=== PATIENT | female | born 1965 | race Two or more races ===

== ENCOUNTER 2016-07-29 12:17 | Emergency (ER) | payer BC, OTHER ==
[2016-07-29 12:23] VITALS: BP 153/95; PULSE 79; TEMP 97.4; BMI 28.9
--- NOTE | 2016-07-29 12:56 | PDOC ---
History of Present Illness - General Chief Complaint: Redness To Affected Area Stated Complaint: INFECTED LT LEG Time Seen by Provider: 07/29/16 12:53 History Source: Patient Exam Limitations: No Limitations - History of Present Illness Initial Comments: CHIEF COMPLAINT: 51 y/o afebrile female with no significant pMH c/o left leg infection. HISTORY OF PRESENT ILLNESS: The patient states she noticed a small pimple on her left calf 1 week ago. The area has become bigger, has gotten red and painful. She denies bug bite. She denies fever, streaking. Vital signs on arrival are within normal limits. REVIEW OF SYSTEMS: GENERAL/CONSTITUTIONAL: No fever/chills. No weakness. No weight change. HEAD, EYES, EARS, NOSE AND THROAT: No change in vision. No ear pain or discharge. No sore throat. GENITOURINARY: No dysuria, frequency, or change in urination. MUSCULOSKELETAL: No joint or muscle swelling or pain. No neck or back pain. SKIN: Painful red are to left calf. NEUROLOGIC: No headache, vertigo, loss of consciousness, or loss of sensation. PHYSICAL EXAM: VITAL_SIGNS: within normal limits GENERAL_APPEARANCE: alert, cooperative, no obvious discomfort. Pt is ambulatory. MENTAL_STATUS: speech clear, oriented X 3, responds appropriately to questions. NEURO: motor intact and sensory intact in injured extremity. EXTREMITIES: good pulse in injured extremity; left calf with 4cm x 3cm, erythematous, warm, indurated abscess with area of fluctuation in center. No streaking. SKIN: warm, dry, good color. Past History - Past Medical History Allergies/Adverse Reactions: Allergies Allergy/AdvReac Type Severity Reaction Status Date / Time No Known Allergies Allergy Verified 07/29/16 12:19 Home Medications: Ambulatory Orders Sulfamethoxazole/Trimethoprim [Bactrim Ds -] 1 tab PO BID #14 tablet 07/29/16 Other medical history: NONE - Psycho/Social/Smoking Cessation Hx Anxiety: No Suicidal Ideation: No Smoking History: Never smoked Have you smoked in the past 12 months: No Information on smoking cessation initiated: No Hx Alcohol Use: No Drug/Substance Use Hx: No Substance Use Type: None *Physical Exam - Vital Signs Last Vital Signs Temp Pulse Resp BP Pulse Ox 97.4 F L 79 18 153/95 100 07/29/16 12:19 07/29/16 12:19 07/29/16 12:19 07/29/16 12:19 07/29/16 12:19 Procedures - Incision and Drainage I&D Site: Left: Leg Betadine cleansed: Yes Blade Size: 18 gauge needle Attempts: 1 Complications: none Medical Decision Making - Medical Decision Making A/P: 51 y/o afebrile female with left calf abscess. 18 gauge needle used to express about 1ml of purulent discharge. Instructed the patient to apply hot compresses at home and sent rx for bactrim. Suggested she f/u with her doctor next week and return to the ER with any worsening or concerning symptoms. The patient verbalizes understanding of all instructions, has no further questions and is awaiting discharge. *DC/Admit/Observation/Transfer Diagnosis at time of Disposition: Abscess of leg, left - Prescriptions Prescriptions: Sulfamethoxazole/Trimethoprim [Bactrim Ds -] 1 tab PO BID #14 tablet - Referrals Referrals: Ishaan Allan MD [Primary Care Provider] - Call tomorrow - Patient Instructions Printed Discharge Instructions: DI for Incision and Drainage of a Skin Abscess Additional Instructions: Discharge Instructions: -Take antibiotics as prescribed -Apply hot compresses to the affected area multiple times per day -Follow up with your doctor within 1 week -Return to the ER with any worsening or concerning symptoms Print Language: GEORGIAN - Post Discharge Activity Work/School Note: Back to Work
== END 2016-07-29 13:23 | disposition home or self-care (01) ==
LOC: JERFT 12:17
PROC: 0H9LXZZ Drainage of Left Lower Leg Skin, External Approach (ICD-10-PCS; principal; 2016-07-29)
DX: L02.416 Cutaneous abscess of left lower limb (principal)
CPT/HCPCS: 99281-25

== ENCOUNTER 2017-08-16 13:26 | Emergency (ER) | payer BC, OTHER ==
[2017-08-16 13:53] VITALS: BP 141/77; TEMP 99.9; BMI 29.2
[2017-08-16] MEDS ORDERED: ACETAMINOPHEN 500 MG TABLET (FP) PO ONE (14:59)
--- NOTE | 2017-08-16 15:04 | PDOC ---
History of Present Illness - General Chief Complaint: Cold Symptoms Stated Complaint: HEADACHES, COUGH Time Seen by Provider: 08/16/17 14:52 History Source: Patient Exam Limitations: No Limitations - History of Present Illness Initial Comments: 08/16/17 14:59 This is a 52-year-old woman with past medical history of kidney stones status post lithotripsy presents to emergency department with 2 days of headache, chills, vomiting- nonbilious nonbloody, sore throat, rhinorrhea, dry cough. Patient reports bitemporal headache radiating across her forehead. She denies any blurry vision, dizziness, chest pain, shortness of breath, abdominal pain, diarrhea, dysuria or urinary symptoms. Past History - Past Medical History Allergies/Adverse Reactions: Allergies Allergy/AdvReac Type Severity Reaction Status Date / Time nut - unspecified AdvReac Intermediate Itching Verified 08/16/17 13:50 FRUIT AdvReac Mild Itching Uncoded 08/16/17 13:50 Home Medications: Ambulatory Orders Oseltamivir Phosphate [Tamiflu -] 75 mg PO BID #10 capsule 08/16/17 Anemia: No Asthma: No Cancer: No Cardiac Disorders: No CVA: No COPD: No CHF: No DVT: No Dementia: No Diabetes: No GI Disorders: No Disorders: No HTN: No Hypercholesterolemia: No Liver Disease: No Seizures: No Thyroid Disease: No - Surgical History Abdominal Surgery: No Appendectomy: No Cardiac Surgery: No Cholecystectomy: No Lung Surgery: No Neurologic Surgery: No Orthopedic Surgery: No - Immunization History Immunization Up to Date: Yes - Suicide/Smoking/Psychosocial Hx Smoking History: Never smoked Have you smoked in the past 12 months: No Information on smoking cessation initiated: No Hx Alcohol Use: No Drug/Substance Use Hx: No Substance Use Type: None Review of Systems - Review of Systems Able to Perform ROS?: Yes Is the patient limited Hungarian proficient: No Constitutional: Yes: See HPI HEENTM: Yes: See HPI Respiratory: Yes: See HPI Cardiac (ROS): No: Symptoms Reported ABD/GI: Yes: See HPI : No: Symptoms Reported Musculoskeletal: No: Symptoms Reported Integumentary: No: Symptoms Reported Neurological: Yes: See HPI *Physical Exam - Vital Signs Last Vital Signs Temp Pulse Resp BP Pulse Ox 99.9 F H 110 H 16 141/77 96 08/16/17 13:50 08/16/17 13:50 08/16/17 13:50 08/16/17 13:50 08/16/17 13:50 - Physical Exam HEENT: positive: Normal Voice, Symmetrical, TMs Normal, Pharyngeal Erythema. negative: Tonsillar Exudate, Tonsillar Erythema Neck: positive: Trachea midline, Supple. negative: Stridor Respiratory/Chest: positive: Lungs Clear, Normal Breath Sounds. negative: Respiratory Distress, Accessory Muscle Use Cardiovascular: positive: Regular Rhythm, S1, S2, Tachycardia. negative: Murmur Gastrointestinal/Abdominal: positive: Normal Bowel Sounds, Soft. negative: Tender Musculoskeletal: positive: Normal Inspection. negative: CVA Tenderness Extremity: positive: Normal Inspection Integumentary: positive: Normal Color, Dry, Warm Neurologic: positive: library supervisor II-XII NML intact, Fully Oriented, Alert, Normal Mood/ Affect, Normal Response, Motor Strength 11/18 Medical Decision Making - Medical Decision Making 08/16/17 15:03 A/P: 52-year-old woman without significant past medical history presenting with 2 days of flulike symptoms. Differential erythema noted. Tachycardic with regular rhythm. S1 and S2 present. No murmur, rub or gallop noted. Skin warm to touch although is afebrile here. Vital signs notable for tachycardia with rate of 108. Influenza testing Tylenol 1 g orally now Reassess 08/16/17 16:06 Influenza testing positive for influenza A. We'll prescribe Tamiflu 75 mg twice a day for 5 days. Patient is feeling better. I will discharge the patient home. I discussed the physical exam findings, ancillary test results and final diagnoses with the patient. I answered all of the patient's questions. The patient was satisfied with the care received and felt comfortable with the discharge plan and treatment plan. The patient will call her doctor within 96 hours to arrange follow-up and will return to the Emergency Department with any new, persistent or worsening symptoms. *DC/Admit/Observation/Transfer Diagnosis at time of Disposition: Influenza A - Discharge Dispostion Disposition: HOME Condition at time of disposition: Stable Admit: No - Prescriptions Prescriptions: Oseltamivir Phosphate [Tamiflu -] 75 mg PO BID #10 capsule - Referrals Referrals: Ishaan Allan MD [Primary Care Provider] - - Patient Instructions Additional Instructions: Rest, drink lots of fluids: Teas, water, soups, Pedialyte Saltwater gargles Steamy showers/seem to face break up mucus Avoid contact with others until fevers and cough resolved Lots of handwashing and good hygiene Continue [id number] medications for symptomatic relief Tylenol or Motrin for fever and pain Tamiflu 75mg twice a day for 5 days. Followup with private physician in one to 2 days as needed Return to emergency department for worsened symptoms, fevers, dehydration Descansa, priyanka muchos lquidos: ts, agua, sopas, Pedialyte Grgaras de agua salada Las duchas con agua parecen romper la mucosidad Evite el contacto con otras personas hasta que se resuelvan las fiebres y la tos Mucho lavado de giovanny y buena higiene Continuar tomando medicamentos sin receta para aliviar los sntomas Tylenol o Motrin para la fiebre y el dolor Tamiflu 75 mg dos veces al da saul 5 moreno. Seguimiento con un mdico privado en adam o dos moreno segn sea necesario Regrese al departamento de emergencias por sntomas empeorados, fiebre, deshidratacin - Post Discharge Activity Forms/Work/School Notes: Back to Work
[2017-08-16] MEDS ORDERED: ACETAMINOPHEN 500 MG TABLET (FP) ONE (15:07)
[2017-08-16 16:15] VITALS: PULSE 90
== END 2017-08-16 16:15 | disposition home or self-care (01) ==
LOC: JERFT 13:26
DX: J09.X2 Influenza due to identified novel influenza A virus with other respiratory manifestations (principal)
CPT/HCPCS: 87804; 99281-25

== ENCOUNTER 2019-06-17 08:43 | Day surgery (SDC) | payer BC, OTHER ==
[2019-06-17] MEDS ORDERED: MIDAZOLAM HCL 2 MG/2 ML SINGLE DOSE VIAL ONE ×2 (12:18)
--- NOTE | 2019-06-17 13:16 | OP ---
Operative Note - Note: Operative Date: 06/17/19 Pre-Operative Diagnosis: RIGHT RENAL STONE Operation: Right ESWL Findings: 6 mm mid pole Right renal stone Post-Operative Diagnosis: Same as Pre-op Anesthesia: Fractional Estimated Blood Loss (mls): 0 Drains, Volume Out (mls): 0 Operative Report Dictated: Yes
[2019-06-17] MEDS ORDERED: ONDANSETRON 4 MG/2 ML VIAL IVPUSH ONE ×2 (13:38→14:35)
[2019-06-17] MEDS ORDERED: ONDANSETRON 4 MG/2 ML VIAL ONE ×2 (13:40→14:32)
[2019-06-17 14:08] VITALS: TEMP 97.8
[2019-06-17 17:30] VITALS: BP 128/76; PULSE 76
--- NOTE | 2019-06-17 17:34 | OP ---
DATE OF OPERATION: 06/17/2019 PREOPERATIVE DIAGNOSIS: Right renal stone. POSTOPERATIVE DIAGNOSIS: Right renal stone. PROCEDURE: Right extracorporeal shock-wave lithotripsy. ATTENDING: Georgiana Knapp MD ANESTHESIA: Fractional. DESCRIPTION OF PROCEDURE: Patient was brought in the operating room and placed in supine position on the operating room table. Ultrasonography and fluoroscopy were then performed. A 6-mm right lower pole stone was then identified. Anesthesia and preoperative antibiotics were then administered. Shock-wave lithotripsy was then started. Excellent fragmentation of the stone was noted under real time ultrasonography and fluoroscopy. Patient tolerated the procedure very well. DISPOSITION: To recovery room. GEORGIANA KNAPP M.D. [id number]
== END 2019-06-17 15:50 | disposition home or self-care (01) ==
LOC: JASU-SURG 08:43
PROVIDERS: ATTEND Urology
PROC: 0TF3XZZ Fragmentation in Right Kidney Pelvis, External Approach (ICD-10-PCS; principal; 2019-06-17 11:45)
DX: N20.0 Calculus of kidney (principal)

== ENCOUNTER 2020-07-13 04:48 | Day surgery (SDC) | payer BC, OTHER ==
[2020-07-06 16:01] VITALS: BMI 26.4
[2020-07-13 19:25] VITALS: BP 122/74; PULSE 55; TEMP 96.8
== END 2020-07-13 16:44 | disposition home or self-care (01) ==
LOC: JASU-SURG 04:48
PROVIDERS: ATTEND Urology
PROC: 0TF4XZZ Fragmentation in Left Kidney Pelvis, External Approach (ICD-10-PCS; principal; 2020-07-13 11:30)
DX: N20.0 Calculus of kidney (principal)

== ENCOUNTER 2021-01-11 05:34 | Day surgery (SDC) | payer BC, OTHER ==
[2021-01-08 11:05] VITALS: BMI 26.9
[2021-01-11] MEDS ORDERED: MIDAZOLAM HCL 2 MG/2 ML SINGLE DOSE VIAL ONE (12:57)
[2021-01-11] MEDS ORDERED: PROPOFOL 20 ML ONE (13:36)
[2021-01-11 14:09] VITALS: TEMP 97.8
[2021-01-11 17:35] VITALS: BP 137/78; PULSE 60
== END 2021-01-11 15:15 | disposition home or self-care (01) ==
LOC: JASU-SURG 05:34
PROVIDERS: ATTEND Urology
PROC: 0TF3XZZ Fragmentation in Right Kidney Pelvis, External Approach (ICD-10-PCS; principal; 2021-01-11 12:00)
DX: N20.0 Calculus of kidney (principal)

== ENCOUNTER 2021-06-14 04:17 | Day surgery (SDC) | payer BC, OTHER ==
[2021-06-08 13:23] VITALS: BMI 25.7
[2021-06-14] MEDS ORDERED: MIDAZOLAM HCL 2 MG/2 ML SINGLE DOSE VIAL ONE ×2 (08:49)
[2021-06-14 10:26] VITALS: BP 120/73; PULSE 61; TEMP 97.8
== END 2021-06-14 11:10 | disposition home or self-care (01) ==
LOC: JASU-SURG 04:17
PROVIDERS: ATTEND Urology
PROC: 0TF3XZZ Fragmentation in Right Kidney Pelvis, External Approach (ICD-10-PCS; principal; 2021-06-14 09:30)
DX: N20.0 Calculus of kidney (principal)

== ENCOUNTER 2024-07-17 09:42 | Emergency (ER) | payer OTHER, BC ==
[2024-07-17 10:16] VITALS: RESP 18; BMI 26.4
[2024-07-17] MEDS ORDERED: ACETAMINOPHEN INJECTION 100 ML ONE (10:45)
[2024-07-17] MEDS: ACETAMINOPHEN 1000 MG/100 ML BAG IVPB ONE (11:22)
[2024-07-17] MEDS ORDERED: MORPHINE SULFATE 2 MG/ML SYRINGE ONE (11:25)
[2024-07-17] MEDS ORDERED: ONDANSETRON 4 MG/2 ML VIAL ONE (11:25)
[2024-07-17 11:26] LABS: BASO % 0.4 % (0-2.0); EOS % 0.1 % (0-4.5); HEMATOCRIT 45.2 % (32.4-45.2); HEMOGLOBIN 15.2 GM/dL (10.7-15.3); LYMPH % 8.5 % (8-40); MCH 32.2 pg (25.7-33.7); MCHC 33.6 g/dl (32.0-36.0); MEAN CELL VOLUME 95.8 fl (80-96); MEAN PLT VOLUME 8.8 fl (7.5-11.1); MONO % 4.2 % (3.8-10.2); NEUT % 86.8 % (42.8-82.8); RBC 4.72 M/mm3 (3.60-5.2); RDW 13.2 % (11.6-15.6)
[2024-07-17] MEDS: morphine CARPU-JECT 2 MG/1 ML DISP.SYRIN IVPUSH ONE (11:36)
[2024-07-17] MEDS: ONDANSETRON 4 MG/2 ML VIAL IVPUSH ONE (11:36)
[2024-07-17 11:48] LABS: POTASSIUM 4.6 mmol/L (3.5-5.1)
[2024-07-17 11:51] LABS: CALCIUM 9.8 mg/dL (8.5-10.1)
[2024-07-17 11:52] LABS: BLOOD UREA NITROGEN 17.6 mg/dL (7-18)
[2024-07-17 11:55] LABS: CREATININE 0.8 mg/dL (0.55-1.3)
[2024-07-17 11:56] LABS: BILIRUBIN,TOTAL 0.4 mg/dL (0.2-1); TOT PROT 8.6 g/dl (6.4-8.2)
[2024-07-17 12:03] LABS: PLATELET COUNT 155 10^3/uL (134-434)
[2024-07-17 12:31] LABS: ACTIVATED PTT 28.7 SECONDS (25.2-36.5); INR 1.07 (0.83-1.09); PROTHROMBIN TIME (PATIENT) 12.3 SEC (9.7-13.0)
[2024-07-17 15:25] VITALS: BP 119/70; PULSE 84; TEMP 98
[2024-07-17] MEDS ORDERED: KETOROLAC TROMETHAMINE 15 MG/ML VIAL ONE (15:31)
[2024-07-17] MEDS: KETOROLAC TROMETHAMINE 15 MG/ML VIAL IVPUSH ONE (15:45)
== END 2024-07-17 18:30 | disposition home or self-care (01) ==
LOC: JER 09:42
PROC: 3E033NZ Introduction of Analgesics, Hypnotics, Sedatives into Peripheral Vein, Percutaneous Approach (ICD-10-PCS; principal; 2024-07-17)
PROC: 3E0333Z Introduction of Anti-inflammatory into Peripheral Vein, Percutaneous Approach (ICD-10-PCS; 2024-07-17)
PROC: 3E033NZ Introduction of Analgesics, Hypnotics, Sedatives into Peripheral Vein, Percutaneous Approach (ICD-10-PCS; 2024-07-17)
PROC: 3E033GC Introduction of Other Therapeutic Substance into Peripheral Vein, Percutaneous Approach (ICD-10-PCS; 2024-07-17)
DX: S06.0X1A Concussion with loss of consciousness of 30 minutes or less, initial encounter (principal); R51.9 Headache, unspecified; M79.602 Pain in left arm; M25.561 Pain in right knee; R07.2 Precordial pain; V49.40XA Driver injured in collision with unspecified motor vehicles in traffic accident, initial encounter
CPT/HCPCS: 36415; 70450-TC; 71045-TC-FY; 71260-TC; 72125-TC; 72170-TC-FY; 73090-TC-LT-FY; 73110-TC-LT-FY; 73130-TC-LT-FY; 73562-TC-RT-FY; 73590-TC-RT-FY; 74177-TC; 80053; 84484; 85025; 85610; 85730; 86850; 86900; 86901; 93005; 93010; 99285-25; J0131; Q9967

== ENCOUNTER 2024-12-23 05:26 | Day surgery (SDC) | payer BC, OTHER ==
[2024-12-19 16:35] VITALS: BMI 30.2
[2024-12-23 09:08] VITALS: RESP 18
[2024-12-23] MEDS ORDERED: KETOROLAC TROMETHAMINE 30 MG/1 ML VIAL ONE (11:16)
[2024-12-23] MEDS ORDERED: ONDANSETRON 4 MG/2 ML VIAL ONE (11:16)
[2024-12-23] MEDS ORDERED: MIDAZOLAM HCL 2 MG/2 ML SINGLE DOSE VIAL ONE (11:17)
[2024-12-23 12:50] VITALS: BP 126/72; PULSE 60; TEMP 97.1
== END 2024-12-23 12:30 | disposition home or self-care (01) ==
LOC: JASU-SURG 05:26
PROVIDERS: ATTEND Urology
PROC: 0TF3XZZ Fragmentation in Right Kidney Pelvis, External Approach (ICD-10-PCS; principal; 2024-12-23 12:00)
DX: N20.0 Calculus of kidney (principal)